=== PATIENT | male | born 1960 | race Caucasian/White ===

== ENCOUNTER 2018-05-01 05:41 | Emergency (ER) | payer OTHER, MEDICAID ==
[~2018-05-01] VITALS: Ht 175.3 cm; Wt 72.1 kg
[~2018-05-01 05:41] MED LIST: CIPRO500 MG PO; IBUPROFEN600 MG ORAL; LORAZEPAM0.5 MG ORAL; NORCO 5-325 TA1 EACH ORAL; ROBAXIN-750750 MG PO
--- NOTE | 2018-05-01 05:41 | NUR ---
ED Nurse Note: Pt BIBA from home with police. Ambulance personnel states that called saying pt was acting abnormal and talking weird. Pt has hx of meth use but according to police, they think it unlikely to be a meth intoxication d/t stable vitals signs. Pt lethargic, AAOx2, ambulatory and easily falling asleep. VSS. satellite project site monitor applied. Will carry out ER D orders.
[2018-05-01 06:03] LABS: BASOPHILS % (AUTO) 0.4 % (0.0-2.0); EOSINOPHILS % (AUTO) 0.9 % (0.0-3.0); HEMATOCRIT 41.6 % (42.0-52.0); HEMOGLOBIN 14.1 G/DL (14.2-18.0); LYMPHOCYTES % (AUTO) 16.7 % (20.0-45.0); MEAN CORPUSCULAR VOLUME 93 FL (80-99); MONOCYTES % (AUTO) 4.1 % (1.0-10.0); NEUTROPHILS % (AUTO) 77.9 % (45.0-75.0); PLATELET COUNT 217 K/UL (150-450); RED BLOOD COUNT 4.49 M/UL (4.70-6.10); RED CELL DISTRIBUTION WIDTH 13.3 % (11.6-14.8); WHITE BLOOD COUNT 12.4 K/UL (4.8-10.8)
--- NOTE | 2018-05-01 06:15 | NUR ---
ED Nurse Note: Blood and urine samples collected and sent to lab. Awaiting results to report to ER MD.
[2018-05-01 06:20] LABS: ANION GAP 6 mmol/L (5-15); BLOOD UREA NITROGEN 12 mg/dL (7-18); CALCIUM 9.1 MG/DL (8.5-10.1); CARBON DIOXIDE 30 MMOL/L (21-32); CHLORIDE 103 MMOL/L (98-107); CREATININE 0.9 MG/DL (0.55-1.30); POTASSIUM 3.9 MMOL/L (3.5-5.1); SODIUM 139 MMOL/L (136-145)
--- NOTE | 2018-05-01 06:21 | Emergency Room Report ---
History of Present Illness General Chief Complaint: General Complaint Source: Patient, EMS (Berta Nicole DO) Present Illness HPI Patient present by paramedics for reports of altered mental status Patient has reported to have previous history of alcohol disease also methamphetamine abuse Patient's family member contacted paramedics after the patient was found to be more confused than usual There was a report that they had called for food while waiting for the food patient had fallen asleep There was no reports of any vomiting or diarrhea Upon arrival the patient is somewhat groggy however able to be focused (Berta Nicole DO) Allergies: Coded Allergies: No Known Allergies (Unverified , 04/25/14) Patient History Past Medical History: see triage record Pertinent Family History: none Reviewed Nursing Documentation: PMH: Agreed; PSxH: Agreed (Berta Nicole DO) Nursing Documentation-PMH History Of Psychiatric Problem: Yes - PTSD, anxiety (Berta Nicole DO) Review of Systems All Other Systems: negative except mentioned in HPI (Berta Nicole DO) Physical Exam Vital Signs Date Time Temp Pulse Resp B/P (MAP) Pulse Ox O2 Delivery O2 Flow Rate FiO2 05/01/18 05:33 99.1 92 14 131/84 98 Sp02 EP Interpretation: reviewed, normal General Appearance: no apparent distress Head: normocephalic, atraumatic Eyes: bilateral eye PERRL, bilateral eye EOMI ENT: hearing grossly normal, normal pharynx, TMs + canals normal, uvula midline Neck: full range of motion, supple, no meningismus, no bony tend Respiratory: lungs clear, normal breath sounds, no rhonchi, no respiratory distress, no retraction, no accessory muscle use Cardiovascular #1: normal peripheral pulses, regular rate, rhythm, no edema, no gallop, no JVD, no murmur Gastrointestinal: normal bowel sounds, non tender, soft, no mass, no organomegaly, non-distended, no guarding, no hernia, no pulsatile mass, no rebound Genitourinary: no CVA tenderness Musculoskeletal: normal inspection Neurologic: responsive, 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 Nicole; please see his note for full history and physical Labs reviewed-electrolytes okay, no leukocytosis, hemoglobin/hematocrit stable, tox panel + THC, amphetamines Patient observed on cardiac specialist. Vital stable. No signs of distress. Resting comfortably. He is awake alert oriented 3. Admits to some marijuana use. Takes benzos for anxiety. Takes Adderall occasionally. Patient denies any SI or HI. This is consistent with initial presentation. I see no reason for emergent psychiatric evaluation Safe for discharge or close outpatient follow-up. I'll provide mental health referrals. Instructed on dangers of polypharmacy i. I feel this is a highly complex case requiring extensive working including EKG/Rhythm strip, Xray/CT/US, Blood/urine lab work, repeat exams while in ED, and administration of strong opiates/narcotics for pain control, admission to hospital or close patient follow up. Diagnosis - substance abuse Stable and discharged to home. Followup with PMD/psych. Return to ED if symptoms recur or worsen Labs Test 05/01/18 05:46 05/01/18 06:15 White Blood Count 12.4 K/UL (4.8-10.8) Red Blood Count 4.49 M/UL (4.70-6.10) Hemoglobin 14.1 G/DL (14.2-18.0) Hematocrit 41.6 % (42.0-52.0) Mean Corpuscular Volume 93 FL (80-99) Mean Corpuscular Hemoglobin 31.5 PG (27.0-31.0) Mean Corpuscular Hemoglobin Concent 34.0 G/DL (32.0-36.0) Red Cell Distribution Width 13.3 % (11.6-14.8) Platelet Count 217 K/UL (150-450) Mean Platelet Volume 7.6 FL (6.5-10.1) Neutrophils (%) (Auto) 77.9 % (45.0-75.0) Lymphocytes (%) (Auto) 16.7 % (20.0-45.0) Monocytes (%) (Auto) 4.1 % (1.0-10.0) Eosinophils (%) (Auto) 0.9 % (0.0-3.0) Basophils (%) (Auto) 0.4 % (0.0-2.0) Sodium Level 139 MMOL/L (136-145) Potassium Level 3.9 MMOL/L (3.5-5.1) Chloride Level 103 MMOL/L (98-107) Carbon Dioxide Level 30 MMOL/L (21-32) Anion Gap 6 mmol/L (5-15) Blood Urea Nitrogen 12 mg/dL (7-18) Creatinine 0.9 MG/DL (0.55-1.30) Estimat Glomerular Filtration Rate > 60 mL/min (>60) Glucose Level 102 MG/DL (74-106) Calcium Level 9.1 MG/DL (8.5-10.1) Total Bilirubin 0.9 MG/DL (0.2-1.0) Aspartate Amino Transf (AST/SGOT) 16 U/L (15-37) Alanine Aminotransferase (ALT/SGPT) 34 U/L (12-78) Alkaline Phosphatase 93 U/L (46-116) Total Protein 7.2 G/DL (6.4-8.2) Albumin 4.1 G/DL (3.4-5.0) Globulin 3.1 g/dL Albumin/Globulin Ratio 1.3 (1.0-2.7) Salicylates Level 1.0 ug/mL (2.8-20) Acetaminophen Level < 2 MCG/ML (10-30) Serum Alcohol < 3 mg/dL Urine Opiates Screen Negative (NEGATIVE) Urine Barbiturates Screen Negative (NEGATIVE) Phencyclidine (PCP) Screen Negative (NEGATIVE) Urine Amphetamines Screen Positive (NEGATIVE) Urine Benzodiazepines Screen Negative (NEGATIVE) Urine Cocaine Screen Negative (NEGATIVE) Urine Marijuana (THC) Screen Positive (NEGATIVE) (1) Substance abuse (Geronimo Dobbins MD) Last Vital Signs Date Time Temp Pulse Resp B/P (MAP) Pulse Ox O2 Delivery O2 Flow Rate FiO2 05/01/18 05:33 99.1 92 14 131/84 98 (Berta Nicole DO) Status: improved (Geronimo Dobbins MD) Disposition: HOME, SELF-CARE Condition: Stable Berta Nicole DO May 01, 2018 06:21 Geronimo Dobbins MD May 01, 2018 09:11
[2018-05-01 06:24] LABS: ALANINE AMINOTRANSFERASE 34 U/L (12-78); ALBUMIN 4.1 G/DL (3.4-5.0); ALBUMIN/GLOBULIN RATIO 1.3 (1.0-2.7); ALKALINE PHOSPHATASE 93 U/L (46-116); ASPARTATE AMINO TRANSFERASE 16 U/L (15-37); BILIRUBIN,TOTAL 0.9 MG/DL (0.2-1.0)
[2018-05-01] MEDS ORDERED: Acetaminophen 650mg/20.3ml GT ONE (06:45)
--- NOTE | 2018-05-01 07:19 | NUR ---
HAND-OFF: Report given to Edi ELMORE. Pt stable. ER MD planning to d/c when sober.
--- NOTE | 2018-05-01 07:42 | NUR ---
ED Nurse Note: Received report from RAMÍREZ Drew. Pt is asleep in bed comfortably. No acute distress noted.
[2018-05-01 07:43] VITALS: BP 126/77
--- NOTE | 2018-05-01 08:24 | NUR ---
ED Nurse Note: Pt is A + O x4. Pt was able to walk w/ steady gait from bed [address]. No acute distress noted. ERMD notified.
--- NOTE | 2018-05-01 09:18 | NUR ---
ED Nurse Note: Discharge instructions given to pt. Answered all questions. Verbalized undertstanding. No acute distress noted. ID band and IV site removed. Left ER w/ steady gait and all belongings.
[2018-05-01 09:19] VITALS: BP 107/85
--- NOTE | 2018-05-02 16:23 | Cardiology Report ---
APPROVED REPORT EKG Measurement Heart [id number] Sinus bradycardia Otherwise normal ECG
== END 2018-05-01 09:20 | disposition home or self-care (01) ==
LOC: EDBD 05:41 → EMR 06:23
DX: F15.10 Other stimulant abuse, uncomplicated (principal); F41.9 Anxiety disorder, unspecified; F43.10 Post-traumatic stress disorder, unspecified
CPT/HCPCS: 36415; 80053; 80307; 85025; 93005; 96360; 99284; G0480; 80329